=== PATIENT | male | born 1950 | race Caucasian/White ===

== ENCOUNTER 2022-11-23 02:09 | Emergency (ER) | payer OTHER ==
[~2022-11-23] VITALS: Ht 172.7 cm; Wt 98.4 kg
[~2022-11-23 02:09] MED LIST: COZAAR100 MG; HYDROCHLOROTHIA25 GM; METFORMIN HCL850 MG; OMEPRAZOLE20 MG
[2022-11-23] MEDS ORDERED: AMLODIPINE BESYL5 MG PO (02:38)
[2022-11-23] MEDS ORDERED: FENOFIBRATE145 MG PO (02:38)
[2022-11-23] MEDS ORDERED: LEVO-T25 MCG PO (02:38)
== END 2022-11-23 04:22 | disposition home or self-care (01) ==
LOC: ER 02:09
DX: R04.0 Epistaxis (principal)